=== PATIENT | female | born 1940 | race Caucasian/White ===

== ENCOUNTER 2017-08-20 15:46 | Inpatient (IN) | payer OTHER ==
[~2017-08-20] VITALS: Ht 160 cm; Wt 46.0 kg
[2017-08-20 16:56] LABS: BASOPHIL % 0.3 % (0-2); PLATELET COUNT 240 x10^3mcL (130-400)
[2017-08-20 16:57] LABS: CARBON DIOXIDE 28.5 mmol/L (21-32); CHLORIDE SERUM 103 mmol/L (98-107); CREATININE SERUM 1.1 mg/dL (0.6-1.0); GLUCOSE SERUM 156 mg/dL (74-106); POTASSIUM SERUM 3.9 mmol/L (3.5-5.1); SODIUM SERUM 140 mmol/L (136-145)
[2017-08-20 16:58] LABS: RED CELL DISTRIBUTION WIDTH 19.1 % (11.5-14.5)
[2017-08-20 17:03] LABS: ALKALINE PHOSPHATASE 88 U/L (46-116); ALT/SGPT 18 U/L (14-59); AST/SGOT 23 U/L (15-37); BILIRUBIN TOTAL 0.2 mg/dL (0.20-1.00)
[2017-08-20 17:04] LABS: ALBUMIN 3.2 g/dL (3.4-5.0)
[2017-08-20 18:47] LABS: CALCIUM 8.8 mg/dL (8.5-10.1); MAGNESIUM 2.3 mg/dL (1.8-2.4)
[2017-08-20] MEDS ORDERED: METFORMIN HCL850 MG PO (18:52)
[2017-08-20] MEDS ORDERED: ATORVASTATIN CA10 M1 PO (18:53)
[2017-08-20] MEDS ORDERED: LEVOTHYROXIN0.137 MG PO (18:53)
[2017-08-20] MEDS ORDERED: DONEPEZIL HYDRO10 M2 PO (18:54)
[2017-08-20 19:30] LABS: PHOSPHOROUS 3.9 mg/dL (2.5-4.9)
[2017-08-20 19:38] LABS: FREE T4 0.67 ng/dL (0.76-1.46); T3 TOTAL 0.54 ng/mL
[2017-08-20 19:50] LABS: CHOLESTEROL/HDL RATIO 3.4
[2017-08-20 19:51] LABS: FREE THYROXINE INDEX 1.4 ug/dL (1.4-4.5); T4(THYROXINE) 4.5 ug/dL (4.7-13.3)
[2017-08-20 20:47] VITALS: BP 123/53
[2017-08-20 20:54] VITALS: Ht 160 cm; Wt 46.0 kg
[2017-08-21 02:19] LABS: CALCIUM 8.5 mg/dL (8.5-10.1); CARBON DIOXIDE 26.8 mmol/L (21-32); CHLORIDE SERUM 108 mmol/L (98-107); CREATININE SERUM 0.9 mg/dL (0.6-1.0); GLUCOSE SERUM 89 mg/dL (74-106); SODIUM SERUM 141 mmol/L (136-145)
[2017-08-21 02:22] LABS: BASOPHIL % 1.7 % (0-2); PLATELET COUNT 211 x10^3mcL (130-400)
[2017-08-21 02:28] LABS: RED CELL DISTRIBUTION WIDTH 17.8 % (11.5-14.5)
[2017-08-21 02:37] LABS: IRON 61 ug/dL (50-170); TOTAL IRON BINDING CAPACITY 356 ug/dL (250-450)
[2017-08-21 07:43] LABS: BASOPHIL % 0.6 % (0-2); PLATELET COUNT 208 x10^3mcL (130-400)
[2017-08-21 07:51] LABS: rbc morphology (normal/abnorm) ABNORMAL (NORMAL)
[2017-08-21 07:52] LABS: CALCIUM 8.4 mg/dL (8.5-10.1); CHLORIDE SERUM 107 mmol/L (98-107); CREATININE SERUM 0.9 mg/dL (0.6-1.0); GLUCOSE SERUM 79 mg/dL (74-106); POTASSIUM SERUM 3.9 mmol/L (3.5-5.1); SODIUM SERUM 141 mmol/L (136-145)
[2017-08-21 09:57] LABS: UA SPECIFIC GRAVITY 1.025 (1.005-1.035); microscopic required? YES; urine erythrocyte 1+ (NEGATIVE)
[2017-08-21 10:03] VITALS: BP 118/53
[2017-08-21 10:07] LABS: AMPHETAMINE QUAL UR NONE DETECTED (NEG <=1000)
[2017-08-21 14:43] VITALS: BP 107/47
[2017-08-21 17:54] VITALS: BP 120/64
[2017-08-21 21:15] VITALS: BP 120/55
[2017-08-22 05:30] VITALS: BP 125/49
[2017-08-22 07:16] LABS: BASOPHIL % 0.5 % (0-2); PLATELET COUNT 197 x10^3mcL (130-400)
[2017-08-22 07:26] LABS: RED CELL DISTRIBUTION WIDTH 19.3 % (11.5-14.5)
[2017-08-22 07:48] LABS: CALCIUM 8.5 mg/dL (8.5-10.1); CARBON DIOXIDE 24.6 mmol/L (21-32); CHLORIDE SERUM 110 mmol/L (98-107); CREATININE SERUM 0.8 mg/dL (0.6-1.0); GLUCOSE SERUM 86 mg/dL (74-106); POTASSIUM SERUM 3.5 mmol/L (3.5-5.1); SODIUM SERUM 142 mmol/L (136-145)
[2017-08-22] MEDS ORDERED: LAC30L PO (12:04)
[2017-08-22] MEDS ORDERED: FER300 PO (12:04)
[2017-08-22 12:31] VITALS: BP 115/55
== END 2017-08-22 14:44 | disposition home or self-care (01) | DRG 393 ==
LOC: ED 15:46 → DU 18:15
PROVIDERS: Emergency Medicine; Family Medicine; Internal Medicine Gastroenterology
PROC: 0DB78ZX Excision of Stomach, Pylorus, Via Natural or Artificial Opening Endoscopic, Diagnostic (ICD-10-PCS; principal; 2017-08-21 09:30)
PROC: 0DBF8ZZ Excision of Right Large Intestine, Via Natural or Artificial Opening Endoscopic (ICD-10-PCS; 2017-08-22)
PROC: 0W3P8ZZ Control Bleeding in Gastrointestinal Tract, Via Natural or Artificial Opening Endoscopic (ICD-10-PCS; 2017-08-22 08:00)
PROC: 0DBG8ZZ Excision of Left Large Intestine, Via Natural or Artificial Opening Endoscopic (ICD-10-PCS; 2017-08-22 08:00)
DX: K64.8 Other hemorrhoids (principal); N17.0 Acute kidney failure with tubular necrosis; Z68.1 Body mass index [BMI] 19.9 or less, adult; E44.0 Moderate protein-calorie malnutrition; N39.0 Urinary tract infection, site not specified; K55.20 Angiodysplasia of colon without hemorrhage; D50.0 Iron deficiency anemia secondary to blood loss (chronic); K63.5 Polyp of colon; K57.30 Diverticulosis of large intestine without perforation or abscess without bleeding; E78.5 Hyperlipidemia, unspecified; E03.9 Hypothyroidism, unspecified; J44.9 Chronic obstructive pulmonary disease, unspecified; F17.210 Nicotine dependence, cigarettes, uncomplicated
CPT/HCPCS: 43235; 45378; 82962; 83880; 84439; 99406; C9113; J0696; J1200; J1610; J2250; J2310; J3010; J3490; J7030; J8597; Q0092